=== PATIENT | male | born 1965 ===

== ENCOUNTER 2019-09-22 11:07 | Inpatient (IN) ==
[2019-09-22] MEDS ORDERED: INFLUENZA VIRUS VACCINE 0.5 ML SYRINGE IM ONE (14:22)
[2019-09-22] MEDS ORDERED: ONDANSETRON 4 MG/2 ML VIAL IV PRN (14:35)
[2019-09-22] MEDS ORDERED: FUROSEMIDE 40 MG/4 ML VIAL IV ONE (17:14)
[2019-09-23 05:41] LABS: Basophils # 0.1 10*3/uL (0.0-0.2); Basophils % 1.5 % (0.0-0.8); Eosinophils # 0.3 10*3/uL (0.0-0.87); Eosinophils % 5.5 % (0.00-10.9); Hematocrit 42.7 VOL% (42.0-52.0); Hemoglobin 14.1 GM/DL (14.0-18.0); Immature Granulocytes % 0.2 %; Immature Granulocytes Absolute 0.01 #; Lymphocytes # 1.7 10*3/uL (1.4-4.0); Lymphocytes % 27.3 % (21.2-54.2); Mean Corpuscular Volume 99.1 FL (87-102); Monocytes % 10.5 % (1.7-12.7); Platelet Count 175 T/CUMM (130-400); Red Blood Count 4.31 MC/CUMM (3.8-5.5); Red Cell Distribution Width 14.9 % (9.3-17.3); White Blood Count 6.2 T/CUMM (4-12)
[2019-09-23 05:43] LABS: Calcium 8.1 MG/DL (8.5-10.1); Osmolality,Calculated 277.4 MOS/KG (273-304)
[2019-09-23] MEDS: DOCUSATE SODIUM 100 MG CAPSULE PO SCH ×2 (08:51→21:15)
[2019-09-23] MEDS ORDERED: FUROSEMIDE 40 MG/4 ML VIAL IV ONE (17:42)
[2019-09-23] MEDS ORDERED: POTASSIUM CHLORIDE 20 MEQ/15 ML UDCUP PO ONE (17:43)
[2019-09-24 05:41] LABS: Basophils # 0.1 10*3/uL (0.0-0.2); Basophils % 1.4 % (0.0-0.8); Eosinophils # 0.7 10*3/uL (0.0-0.87); Eosinophils % 10.4 % (0.00-10.9); Hematocrit 40.5 VOL% (42.0-52.0); Hemoglobin 13.3 GM/DL (14.0-18.0); Immature Granulocytes % 0.3 %; Immature Granulocytes Absolute 0.02 #; Lymphocytes # 2.7 10*3/uL (1.4-4.0); Lymphocytes % 41.9 % (21.2-54.2); Mean Corpuscular HGB Conc 32.8 GM/DL (32-36); Mean Corpuscular Volume 98.8 FL (87-102); Mean Platelet Volume 9.3 FL (9.6-12.0); Monocytes % 10.7 % (1.7-12.7); Neutrophils % 35.3 % (38.7-73.9); Platelet Count 169 T/CUMM (130-400); Red Cell Distribution Width 14.6 % (9.3-17.3); White Blood Count 6.3 T/CUMM (4-12)
[2019-09-24 05:48] LABS: Osmolality,Calculated 272.7 MOS/KG (273-304)
[2019-09-24 06:23] LABS: Eosinophils 16 % (0-10); Lymphocytes 34 % (20-55); Platelet Estimate Adequate; Segmented Neutrophils 40 % (50-85); Total Cells Counted 100
[2019-09-24 06:24] LABS: Hypochromasia 1+; Ovalocytes Slight
[2019-09-24] MEDS: DOCUSATE SODIUM 100 MG CAPSULE PO SCH (09:25)
[2019-09-24 12:13] VITALS: BP 108/71
== END 2019-09-24 16:42 | disposition home or self-care (01) | DRG 247 ==
LOC: N.2W 11:53 → SUATTDRO 11:53
PROVIDERS: ADMIT Internal Medicine; ATTEND Internal Medicine

== ENCOUNTER 2019-10-07 17:39 | Observation (INO) ==
[2019-10-07] MEDS ORDERED: ACETAMINOPHEN 325 MG TABLET PO PRN (20:20)
[2019-10-07] MEDS ORDERED: ONDANSETRON 4 MG/2 ML VIAL IV PRN (20:20)
[2019-10-07] MEDS ORDERED: AMITRIPTYLINE 50 MG TABLET PO SCH (21:00)
[2019-10-07] MEDS: FUROSEMIDE 40 MG/4 ML VIAL IV SCH (21:43)
[2019-10-07] MEDS: SPIRONOLACTONE 25 MG TABLET PO SCH (21:44)
[2019-10-07] MEDS: MORPHINE ER 30 MG TABLET PO SCH (21:44)
[2019-10-07] MEDS: DOCUSATE SODIUM 100 MG CAPSULE PO SCH (21:44)
[2019-10-07] MEDS: carvediloL 3.125 MG TABLET PO SCH (21:45)
[2019-10-07] MEDS: GABAPENTIN 400 MG CAPSULE PO SCH (21:45)
[2019-10-07] MEDS: NORTRIPTYLINE 25 MG CAPSULE PO SCH (21:45)
[2019-10-07 23:52] LABS: Albumin 2.8 G/DL (3.4-5.0); Bilirubin,Total 0.6 MG/DL (0.2-1.0); Calcium 8.1 MG/DL (8.5-10.1); Total Protein 7.6 G/DL (6.4-8.3)
[2019-10-08 06:48] LABS: Basophils # 0.1 10*3/uL (0.0-0.2); Eosinophils # 1.6 10*3/uL (0.0-0.87); Eosinophils % 21.3 % (0.00-10.9); Hematocrit 39.5 VOL% (42.0-52.0); Immature Granulocytes % 0.1 %; Immature Granulocytes Absolute 0.01 #; Lymphocytes # 2.7 10*3/uL (1.4-4.0); Lymphocytes % 37.2 % (21.2-54.2); Mean Corpuscular HGB Conc 32.9 GM/DL (32-36); Mean Corpuscular Volume 96.3 FL (87-102); Mean Platelet Volume 10.1 FL (9.6-12.0); Monocytes % 7.5 % (1.7-12.7); Neutrophils % 32.9 % (38.7-73.9); Platelet Count 140 T/CUMM (130-400); Red Cell Distribution Width 14.3 % (9.3-17.3); White Blood Count 7.3 T/CUMM (4-12)
[2019-10-08 07:25] LABS: Calcium 8.2 MG/DL (8.5-10.1); Osmolality,Calculated 275.7 MOS/KG (273-304)
[2019-10-08 07:35] LABS: Band Neutrophils 1 % (0-10); Eosinophils 26 % (0-10); Hypochromasia 1+; Lymphocytes 33 % (20-55); Segmented Neutrophils 33 % (50-85); Total Cells Counted 100
[2019-10-08 07:36] LABS: Macrocytosis Slight; Platelet Estimate Adequate
[2019-10-08] MEDS: LOSARTAN 25 MG TABLET PO SCH (08:37)
[2019-10-08] MEDS: carvediloL 3.125 MG TABLET PO SCH ×2 (08:38→21:25)
[2019-10-08] MEDS: SPIRONOLACTONE 25 MG TABLET PO SCH (08:38)
[2019-10-08] MEDS: DOCUSATE SODIUM 100 MG CAPSULE PO SCH ×2 (08:38→21:25)
[2019-10-08] MEDS: FUROSEMIDE 40 MG/4 ML VIAL IV SCH ×2 (08:39→16:29)
[2019-10-08] MEDS: MORPHINE ER 30 MG TABLET PO SCH ×2 (08:56→21:24)
[2019-10-08] MEDS: GABAPENTIN 400 MG CAPSULE PO SCH ×3 (10:29→21:28)
[2019-10-08] MEDS ORDERED: POTASSIUM CHLORIDE 20 MEQ TABLET PO ONE (10:55)
[2019-10-08] MEDS: NICOTINE 21 MG/24 HR PATCH TRANSDERM SCH (17:01)
[2019-10-08] MEDS ORDERED: RIVAROXABAN 10 MG TABLET PO SCH (21:00)
[2019-10-08] MEDS: NORTRIPTYLINE 25 MG CAPSULE PO SCH (21:25)
[2019-10-09 08:19] VITALS: BP 110/78
[2019-10-09] MEDS ORDERED: SPIRONOLACTONE 50 MG TABLET PO SCH (09:00)
[2019-10-09] MEDS: FUROSEMIDE 40 MG/4 ML VIAL IV SCH (09:24)
[2019-10-09] MEDS: MORPHINE ER 30 MG TABLET PO SCH (09:30)
[2019-10-09] MEDS: LOSARTAN 25 MG TABLET PO SCH (09:31)
[2019-10-09] MEDS: DOCUSATE SODIUM 100 MG CAPSULE PO SCH (09:31)
[2019-10-09] MEDS: carvediloL 3.125 MG TABLET PO SCH (09:32)
[2019-10-09] MEDS: GABAPENTIN 400 MG CAPSULE PO SCH (09:32)
[2019-10-09] MEDS: NICOTINE 21 MG/24 HR PATCH TRANSDERM SCH (09:34)
[2019-10-09] MEDS ORDERED: POTASSIUM CHLORIDE 20 MEQ TABLET PO ONE (10:13)
== END 2019-10-09 12:07 | disposition home or self-care (01) ==
LOC: N.2W
PROVIDERS: ADMIT Internal Medicine; ATTEND Hospitalist

== ENCOUNTER 2019-12-11 00:09 | Inpatient (IN) ==
[2019-12-11] MEDS ORDERED: ALBUTEROL/IPRATROPIUM 3 ML NEB RESP TX STA (00:35)
[2019-12-11] MEDS ORDERED: FUROSEMIDE 100 MG/10 ML VIAL IV STA (00:35)
[2019-12-11] MEDS ORDERED: ONDANSETRON 4 MG/2 ML VIAL IV STA (00:35)
[2019-12-11] MEDS ORDERED: methylPREDNISolone SOD SUC 125 MG/2 ML VIAL IV STA (00:35)
[2019-12-11 00:56] LABS: Basophils # 0.1 10*3/uL (0.0-0.2); Basophils % 1.1 % (0.0-0.8); Eosinophils # 0.4 10*3/uL (0.0-0.87); Eosinophils % 4.3 % (0.00-10.9); Hemoglobin 13.3 GM/DL (14.0-18.0); Immature Granulocytes % 0.2 %; Immature Granulocytes Absolute 0.02 #; Lymphocytes # 2.4 10*3/uL (1.4-4.0); Lymphocytes % 29.8 % (21.2-54.2); Mean Corpuscular HGB Conc 34.1 GM/DL (32-36); Mean Corpuscular Volume 92.2 FL (87-102); Mean Platelet Volume 10.2 FL (9.6-12.0); Monocytes % 6.5 % (1.7-12.7); Neutrophils % 58.1 % (38.7-73.9); Platelet Count 171 T/CUMM (130-400); Red Blood Count 4.23 MC/CUMM (3.8-5.5); Red Cell Distribution Width 17.7 % (9.3-17.3); White Blood Count 8.1 T/CUMM (4-12)
[2019-12-11 01:07] LABS: INR 1.2; PT Patient Result 12.4 SECS (9.8-11.9)
[2019-12-11 01:25] LABS: Albumin 3.4 G/DL (3.4-5.0); Calcium 8.8 MG/DL (8.5-10.1); Osmolality,Calculated 271.1 MOS/KG (273-304); Total Protein 8.9 G/DL (6.4-8.3)
[2019-12-11] MEDS ORDERED: ENOXAPARIN 100 MG/ML SYRINGE SUBCUT STA (01:38)
[2019-12-11] MEDS ORDERED: ENOXAPARIN 60 MG/0.6 ML SYRINGE SUBCUT STA (01:40)
[2019-12-11 02:00] LABS: Apearance,Urine CLEAR (Clear); Bacteria,Urine Occasional /HPF (Few); Bilirubin,Urine Negative (Negative); Blood, Urine Small mg/dL (Negative); Glucose,Urine (UA) Negative (Negative); Ketones,Urine 5 mg/dL (Negative); Mucus,Urine Occasional /LPF (Occasional); Nitrite,Urine Negative (Negative); Protein,Urine 100 MG/DL; RBC,Urine 1 /HPF (0-4); Urine Color Yellow (Yellow); Urine Specific Gravity 1.014 (1.001-1.035); WBC,Urine 2 /HPF (0-6)
[2019-12-11 02:16] LABS: Barbiturates Screen,Urine Negative (Negative); Benzodiazepines Screen,Urine Negative (Negative); Cannabinoid Screen,Urine Negative (Negative); Opiate Screen,Urine Negative (Negative); Phencyclidine Screen,Urine Negative (Negative)
[2019-12-11 04:07] LABS: Ferritin 209.1 ng/ml (26-388)
[2019-12-11] MEDS ORDERED: DOCUSATE SODIUM 100 MG CAPSULE PO PRN (04:12)
[2019-12-11] MEDS ORDERED: hydrALAZINE 20 MG/1 ML VIAL IV PRN (04:12)
[2019-12-11] MEDS ORDERED: MORPHINE 4 MG/1 ML VIAL IV PRN (04:12)
[2019-12-11] MEDS ORDERED: guaiFENesin 200 MG/10 ML UDCUP PO PRN (04:12)
[2019-12-11] MEDS ORDERED: ONDANSETRON 4 MG/2 ML VIAL IV PRN (04:12)
[2019-12-11] MEDS ORDERED: AZITHROMYCIN INJ 500 MG in SODIUM CHLORIDE 0.9% 250 ML IV SCH (05:00)
[2019-12-11] MEDS ORDERED: NITROGLYCERIN SL 0.4 MG TABLET SL PRN (05:01)
[2019-12-11] MEDS ORDERED: NICOTINE 21 MG/24 HR PATCH TRANSDERM PRN (05:11)
[2019-12-11] MEDS: cefTRIAXone 1,000 MG in SYRINGE 1 EACH IV SCH (06:00)
[2019-12-11] MEDS ORDERED: ALBUTEROL INHALER 8 GM INH SCH (07:00)
[2019-12-11] MEDS ORDERED: carvediloL 3.125 MG TABLET PO SCH (08:00)
[2019-12-11] MEDS: FOLIC ACID 1 MG TABLET PO SCH (08:24)
[2019-12-11] MEDS: ASPIRIN CHEW 81 MG TABLET PO SCH (08:24)
[2019-12-11] MEDS: predniSONE 20 MG TABLET PO SCH (08:24)
[2019-12-11] MEDS: SODIUM CHLORIDE 1 GM TABLET PO SCH ×2 (08:24→16:06)
[2019-12-11] MEDS: GABAPENTIN 100 MG CAPSULE PO SCH ×3 (08:24→20:41)
[2019-12-11] MEDS: THIAMINE 100 MG TABLET PO SCH (08:24)
[2019-12-11] MEDS: SACUBITRIL/VALSARTAN 49-51 MG TABLET PO SCH ×2 (08:24→20:40)
[2019-12-11] MEDS ORDERED: AZITHROMYCIN 250 MG TABLET PO SCH (09:00)
[2019-12-11] MEDS ORDERED: ASPIRIN EC 81 MG TABLET PO SCH (09:00)
[2019-12-11] MEDS ORDERED: ATORVASTATIN 80 MG TABLET PO SCH (09:00)
[2019-12-11] MEDS ORDERED: carvediloL 6.25 MG TABLET PO SCH (09:00)
[2019-12-11] MEDS: ISOSORBIDE DINITRATE 10 MG TABLET PO SCH ×2 (16:03→20:40)
[2019-12-11] MEDS: FUROSEMIDE 40 MG/4 ML VIAL IV SCH (16:03)
[2019-12-11] MEDS: ENOXAPARIN 60 MG/0.6 ML SYRINGE SUBCUT SCH (16:04)
[2019-12-11] MEDS: METOPROLOL TARTRATE 50 MG TABLET PO SCH (20:41)
[2019-12-11] MEDS: ACETAMINOPHEN 325 MG TABLET PO PRN (20:48)
[2019-12-12 04:51] LABS: Basophils % 0.1 % (0.0-0.8); Hematocrit 35.3 VOL% (42.0-52.0); Hemoglobin 11.6 GM/DL (14.0-18.0); Immature Granulocytes % 0.4 %; Immature Granulocytes Absolute 0.06 #; Lymphocytes # 1.4 10*3/uL (1.4-4.0); Lymphocytes % 9.7 % (21.2-54.2); Mean Corpuscular HGB Conc 32.9 GM/DL (32-36); Mean Corpuscular Volume 94.9 FL (87-102); Mean Platelet Volume 10.1 FL (9.6-12.0); Monocytes % 5.3 % (1.7-12.7); Neutrophils % 84.5 % (38.7-73.9); Platelet Count 153 T/CUMM (130-400); Red Blood Count 3.72 MC/CUMM (3.8-5.5); Red Cell Distribution Width 17.1 % (9.3-17.3); White Blood Count 14.7 T/CUMM (4-12)
[2019-12-12 04:59] LABS: Calcium 7.8 MG/DL (8.5-10.1); Osmolality,Calculated 281.8 MOS/KG (273-304)
[2019-12-12 05:23] LABS: Risk Ratio 2.78; Thyroid Stimulating Hormone 0.37 uIU/ml (0.358-3.74)
[2019-12-12] MEDS: ENOXAPARIN 60 MG/0.6 ML SYRINGE SUBCUT SCH (06:41)
[2019-12-12] MEDS: cefTRIAXone 1,000 MG in SYRINGE 1 EACH IV SCH (06:41)
[2019-12-12] MEDS: THIAMINE 100 MG TABLET PO SCH (09:27)
[2019-12-12] MEDS: predniSONE 20 MG TABLET PO SCH (09:27)
[2019-12-12] MEDS: SACUBITRIL/VALSARTAN 49-51 MG TABLET PO SCH ×2 (09:28→21:36)
[2019-12-12] MEDS: ASCORBIC ACID 500 MG TABLET PO SCH (09:28)
[2019-12-12] MEDS: ISOSORBIDE DINITRATE 10 MG TABLET PO SCH ×3 (09:28→21:37)
[2019-12-12] MEDS: FUROSEMIDE 40 MG TABLET PO SCH (09:28)
[2019-12-12] MEDS: AZITHROMYCIN 250 MG TABLET PO SCH (09:28)
[2019-12-12] MEDS: SODIUM CHLORIDE 1 GM TABLET PO SCH ×2 (09:28→17:18)
[2019-12-12] MEDS: FOLIC ACID 1 MG TABLET PO SCH (09:28)
[2019-12-12] MEDS: METOPROLOL TARTRATE 50 MG TABLET PO SCH ×2 (09:28→21:38)
[2019-12-12] MEDS: ASPIRIN CHEW 81 MG TABLET PO SCH (09:28)
[2019-12-12] MEDS: GABAPENTIN 100 MG CAPSULE PO SCH ×3 (09:28→21:37)
[2019-12-12] MEDS ORDERED: metOLazone 2.5 MG TABLET PO SCH (09:30)
[2019-12-12] MEDS: FUROSEMIDE 40 MG/4 ML VIAL IV SCH (10:44)
[2019-12-12] MEDS: ceFAZolin 1,000 MG in SYRINGE 1 EACH IV SCH ×2 (15:21→21:38)
[2019-12-12] MEDS: ACETAMINOPHEN 325 MG TABLET PO PRN (21:50)
[2019-12-13 05:53] LABS: Basophils % 0.1 % (0.0-0.8); Hematocrit 38.7 VOL% (42.0-52.0); Hemoglobin 12.7 GM/DL (14.0-18.0); Immature Granulocytes % 0.2 %; Immature Granulocytes Absolute 0.03 #; Lymphocytes # 2.1 10*3/uL (1.4-4.0); Lymphocytes % 15.7 % (21.2-54.2); Mean Corpuscular HGB Conc 32.8 GM/DL (32-36); Mean Corpuscular Volume 94.6 FL (87-102); Mean Platelet Volume 10.5 FL (9.6-12.0); Monocytes % 5.5 % (1.7-12.7); Neutrophils % 78.5 % (38.7-73.9); Platelet Count 166 T/CUMM (130-400); Red Blood Count 4.09 MC/CUMM (3.8-5.5); Red Cell Distribution Width 17.6 % (9.3-17.3); White Blood Count 13.2 T/CUMM (4-12)
[2019-12-13 06:12] LABS: Calcium 8.1 MG/DL (8.5-10.1); Osmolality,Calculated 281.1 MOS/KG (273-304)
[2019-12-13] MEDS: ceFAZolin 1,000 MG in SYRINGE 1 EACH IV SCH ×2 (06:46→14:40)
[2019-12-13] MEDS: SACUBITRIL/VALSARTAN 49-51 MG TABLET PO SCH ×2 (09:20→22:18)
[2019-12-13] MEDS: GABAPENTIN 100 MG CAPSULE PO SCH ×3 (09:20→22:18)
[2019-12-13] MEDS: FUROSEMIDE 40 MG TABLET PO SCH (09:20)
[2019-12-13] MEDS: SODIUM CHLORIDE 1 GM TABLET PO SCH ×2 (09:20→17:00)
[2019-12-13] MEDS: METOPROLOL TARTRATE 50 MG TABLET PO SCH ×2 (09:21→22:15)
[2019-12-13] MEDS: AZITHROMYCIN 250 MG TABLET PO SCH (09:21)
[2019-12-13] MEDS: ISOSORBIDE DINITRATE 10 MG TABLET PO SCH ×3 (09:21→22:18)
[2019-12-13] MEDS: ASCORBIC ACID 500 MG TABLET PO SCH (09:22)
[2019-12-13] MEDS: ASPIRIN CHEW 81 MG TABLET PO SCH (09:22)
[2019-12-13] MEDS: THIAMINE 100 MG TABLET PO SCH (09:22)
[2019-12-13] MEDS: ENOXAPARIN 40 MG/0.4 ML SYRINGE SUBCUT SCH (09:23)
[2019-12-13] MEDS: FOLIC ACID 1 MG TABLET PO SCH (09:23)
[2019-12-13] MEDS: predniSONE 20 MG TABLET PO SCH (09:25)
[2019-12-13] MEDS: VANCOMYCIN INJ 1,000 MG in SODIUM CHLORIDE 0.9% 250 ML IV SCH (17:00)
[2019-12-14 05:17] LABS: Basophils % 0.2 % (0.0-0.8); Eosinophils # 0.4 10*3/uL (0.0-0.87); Eosinophils % 3.1 % (0.00-10.9); Hematocrit 43.7 VOL% (42.0-52.0); Hemoglobin 14.4 GM/DL (14.0-18.0); Immature Granulocytes % 0.3 %; Immature Granulocytes Absolute 0.03 #; Lymphocytes # 3.7 10*3/uL (1.4-4.0); Lymphocytes % 32.4 % (21.2-54.2); Mean Corpuscular Volume 93.4 FL (87-102); Mean Platelet Volume 10.2 FL (9.6-12.0); Monocytes % 7.4 % (1.7-12.7); Neutrophils % 56.6 % (38.7-73.9); Platelet Count 181 T/CUMM (130-400); Red Blood Count 4.68 MC/CUMM (3.8-5.5); Red Cell Distribution Width 17.7 % (9.3-17.3); White Blood Count 11.3 T/CUMM (4-12)
[2019-12-14] MEDS: VANCOMYCIN INJ 1,000 MG in SODIUM CHLORIDE 0.9% 250 ML IV SCH ×2 (05:39→16:36)
[2019-12-14 05:45] LABS: Calcium 8.4 MG/DL (8.5-10.1)
[2019-12-14] MEDS: SACUBITRIL/VALSARTAN 49-51 MG TABLET PO SCH (09:53)
[2019-12-14] MEDS: ASPIRIN CHEW 81 MG TABLET PO SCH (09:53)
[2019-12-14] MEDS: SODIUM CHLORIDE 1 GM TABLET PO SCH ×2 (09:53→16:36)
[2019-12-14] MEDS: ISOSORBIDE DINITRATE 10 MG TABLET PO SCH ×2 (09:54→16:35)
[2019-12-14] MEDS: FOLIC ACID 1 MG TABLET PO SCH (09:54)
[2019-12-14] MEDS: FUROSEMIDE 40 MG TABLET PO SCH (09:55)
[2019-12-14] MEDS: ASCORBIC ACID 500 MG TABLET PO SCH (09:55)
[2019-12-14] MEDS: METOPROLOL TARTRATE 50 MG TABLET PO SCH (09:55)
[2019-12-14] MEDS: predniSONE 20 MG TABLET PO SCH (09:55)
[2019-12-14] MEDS: THIAMINE 100 MG TABLET PO SCH (09:55)
[2019-12-14] MEDS: GABAPENTIN 100 MG CAPSULE PO SCH ×3 (09:55→22:00)
[2019-12-14] MEDS: ENOXAPARIN 40 MG/0.4 ML SYRINGE SUBCUT SCH (09:55)
[2019-12-14] MEDS: AZITHROMYCIN 250 MG TABLET PO SCH (09:55)
[2019-12-14] MEDS: ACETAMINOPHEN 325 MG TABLET PO PRN (16:25)
[2019-12-15] MEDS: ISOSORBIDE DINITRATE 10 MG TABLET PO SCH ×2 (02:04→09:03)
[2019-12-15] MEDS: SACUBITRIL/VALSARTAN 49-51 MG TABLET PO SCH ×3 (02:04→21:22)
[2019-12-15] MEDS: METOPROLOL TARTRATE 25 MG TABLET PO SCH ×2 (02:04→09:04)
[2019-12-15] MEDS: VANCOMYCIN INJ 1,000 MG in SODIUM CHLORIDE 0.9% 250 ML IV SCH ×2 (05:00→16:10)
[2019-12-15 06:30] LABS: Basophils % 0.1 % (0.0-0.8); Eosinophils # 0.1 10*3/uL (0.0-0.87); Eosinophils % 1.1 % (0.00-10.9); Hematocrit 41.6 VOL% (42.0-52.0); Hemoglobin 13.6 GM/DL (14.0-18.0); Immature Granulocytes % 0.3 %; Immature Granulocytes Absolute 0.03 #; Lymphocytes # 2.8 10*3/uL (1.4-4.0); Lymphocytes % 26.9 % (21.2-54.2); Mean Corpuscular HGB Conc 32.7 GM/DL (32-36); Mean Corpuscular Volume 93.9 FL (87-102); Mean Platelet Volume 10.3 FL (9.6-12.0); Monocytes % 6.6 % (1.7-12.7); Platelet Count 177 T/CUMM (130-400); Red Blood Count 4.43 MC/CUMM (3.8-5.5); Red Cell Distribution Width 17.6 % (9.3-17.3); White Blood Count 10.5 T/CUMM (4-12)
[2019-12-15 06:49] LABS: Calcium 8.4 MG/DL (8.5-10.1); Osmolality,Calculated 284.8 MOS/KG (273-304)
[2019-12-15] MEDS: FUROSEMIDE 40 MG TABLET PO SCH (09:01)
[2019-12-15] MEDS: SODIUM CHLORIDE 1 GM TABLET PO SCH ×2 (09:01→16:10)
[2019-12-15] MEDS: THIAMINE 100 MG TABLET PO SCH (09:02)
[2019-12-15] MEDS: predniSONE 20 MG TABLET PO SCH (09:03)
[2019-12-15] MEDS: AZITHROMYCIN 250 MG TABLET PO SCH (09:03)
[2019-12-15] MEDS: ASCORBIC ACID 500 MG TABLET PO SCH (09:03)
[2019-12-15] MEDS: ASPIRIN CHEW 81 MG TABLET PO SCH (09:03)
[2019-12-15] MEDS: GABAPENTIN 100 MG CAPSULE PO SCH ×3 (09:03→21:22)
[2019-12-15] MEDS: FOLIC ACID 1 MG TABLET PO SCH (09:03)
[2019-12-15] MEDS: ENOXAPARIN 40 MG/0.4 ML SYRINGE SUBCUT SCH (09:04)
[2019-12-15] MEDS: carvediloL 3.125 MG TABLET PO SCH (21:21)
[2019-12-15] MEDS ORDERED: MELATONIN 3 MG TABLET PO PRN (23:42)
[2019-12-16] MEDS: VANCOMYCIN INJ 1,000 MG in SODIUM CHLORIDE 0.9% 250 ML IV SCH (04:55)
[2019-12-16 05:49] LABS: Basophils % 0.2 % (0.0-0.8); Eosinophils # 0.1 10*3/uL (0.0-0.87); Eosinophils % 1.4 % (0.00-10.9); Hematocrit 41.3 VOL% (42.0-52.0); Hemoglobin 13.5 GM/DL (14.0-18.0); Immature Granulocytes % 0.3 %; Immature Granulocytes Absolute 0.03 #; Lymphocytes % 29.9 % (21.2-54.2); Mean Corpuscular HGB Conc 32.7 GM/DL (32-36); Mean Corpuscular Volume 94.1 FL (87-102); Mean Platelet Volume 10.1 FL (9.6-12.0); Monocytes % 8.9 % (1.7-12.7); Neutrophils % 59.3 % (38.7-73.9); Platelet Count 164 T/CUMM (130-400); Red Blood Count 4.39 MC/CUMM (3.8-5.5); Red Cell Distribution Width 17.9 % (9.3-17.3); White Blood Count 9.9 T/CUMM (4-12)
[2019-12-16] MEDS: ENOXAPARIN 40 MG/0.4 ML SYRINGE SUBCUT SCH (08:06)
[2019-12-16] MEDS: SACUBITRIL/VALSARTAN 49-51 MG TABLET PO SCH (08:07)
[2019-12-16] MEDS: ASPIRIN CHEW 81 MG TABLET PO SCH (08:08)
[2019-12-16] MEDS: FOLIC ACID 1 MG TABLET PO SCH (08:08)
[2019-12-16] MEDS: GABAPENTIN 100 MG CAPSULE PO SCH (08:08)
[2019-12-16] MEDS: THIAMINE 100 MG TABLET PO SCH (08:08)
[2019-12-16] MEDS: ASCORBIC ACID 500 MG TABLET PO SCH (08:09)
[2019-12-16 08:11] VITALS: BP 99/57
[2019-12-16] MEDS: carvediloL 3.125 MG TABLET PO SCH (08:13)
[2019-12-16] MEDS: SODIUM CHLORIDE 1 GM TABLET PO SCH (08:14)
[2019-12-16] MEDS ORDERED: FUROSEMIDE 20 MG TABLET PO SCH (09:00)
[2019-12-16] MEDS ORDERED: predniSONE 10 MG TABLET PO SCH (09:00)
== END 2019-12-16 11:40 | disposition home or self-care (01) | DRG 190 ==
LOC: N.ED 00:09 → N.EDINP 03:23 → SUATTDRO 03:23 → N.2E 03:44
PROVIDERS: ADMIT Internal Medicine; ATTEND Internal Medicine